=== PATIENT | male | born 1980 | race Caucasian/White ===

== ENCOUNTER 2019-08-06 22:58 | Emergency (ER) | payer SELFPAY ==
[~2019-08-06] VITALS: Ht 172.7 cm; Wt 72.6 kg
[2019-08-06 23:10] VITALS: BP 129/93
--- NOTE | 2019-08-06 23:12 | NUR ---
ED Nurse Note: Patient walked in from home d/t abdominal pain, n/v, denies diarrhea. Patient states he is a [place] citizen on international trip. Patient aao x 4 and ambulatory. 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 ERMD at bedside. No acute distress noted during assessment.
--- NOTE | 2019-08-06 23:12 | Emergency Room Report ---
History of Present Illness General Chief Complaint: Vomiting Source: Patient Present Illness HPI Patient presents with complaints of increased epigastric discomfort nausea vomiting Symptoms started around 5:00 this evening patient reports that throughout the day he did not feel 100% right However the vomiting started around 5:00 patient reports that he is traveling right now And he is staying with a roommate otherwise denies any obvious sick contacts Denies any chest pain or shortness of breath denies any fevers Denies any rash does not recall eating anything unusual Allergies: Coded Allergies: No Known Allergies (Unverified , 08/06/19) Patient History Past Medical History: see triage record Reviewed Nursing Documentation: PMH: Agreed; PSxH: Agreed Nursing Documentation-PMH Past Medical History: No Stated History Review of Systems All Other Systems: negative except mentioned in HPI Physical Exam Vital Signs Date Time Temp Pulse Resp B/P (MAP) Pulse Ox O2 Delivery O2 Flow Rate FiO2 08/06/19 23:00 98.4 63 18 131/65 (87) 98 Room Air Sp02 EP Interpretation: reviewed, normal General Appearance: mild distress - Actively nauseated Head: normocephalic, atraumatic Eyes: bilateral eye PERRL, bilateral eye EOMI ENT: hearing grossly normal, EOM grossly intact Neck: supple Respiratory: lungs clear, no respiratory distress, no retraction Cardiovascular #1: regular rate, rhythm Gastrointestinal: non tender, soft Musculoskeletal: normal inspection Neurologic: alert, oriented x3 Skin: no rash Lymphatic: no adenopathy Medical Decision Making Diagnostic Impression: Primary Impression: Vomiting Additional Impression: Abdominal pain ER Course With the history exam and presentation, multiple differentials considered, including but not limited to appendicitis, gastritis, cholecystitis, diverticulitis Patient initially initiated on IV hydration and brought blood work Patient improved however still had some epigastric and mid abdominal pain therefore CT imaging was obtained Does not show any obvious acute process on repeat evaluation patient has improved lower abdomen remains soft my suspicion for appendicitis is low Patient is discharged for close outpatient follow-up Labs Test 08/06/19 23:17 White Blood Count 13.1 K/UL (4.8-10.8) Red Blood Count 5.41 M/UL (4.70-6.10) Hemoglobin 16.4 G/DL (14.2-18.0) Hematocrit 44.9 % (42.0-52.0) Mean Corpuscular Volume 83 FL (80-99) Mean Corpuscular Hemoglobin 30.3 PG (27.0-31.0) Mean Corpuscular Hemoglobin Concent 36.5 G/DL (32.0-36.0) Red Cell Distribution Width 9.6 % (11.6-14.8) Platelet Count 260 K/UL (150-450) Mean Platelet Volume 7.3 FL (6.5-10.1) Neutrophils (%) (Auto) % (45.0-75.0) Lymphocytes (%) (Auto) % (20.0-45.0) Monocytes (%) (Auto) % (1.0-10.0) Eosinophils (%) (Auto) % (0.0-3.0) Basophils (%) (Auto) % (0.0-2.0) Sodium Level 139 MMOL/L (136-145) Potassium Level 3.2 MMOL/L (3.5-5.1) Chloride Level 102 MMOL/L (98-107) Carbon Dioxide Level 24 MMOL/L (21-32) Anion Gap 13 mmol/L (5-15) Blood Urea Nitrogen 15 mg/dL (7-18) Creatinine 1.0 MG/DL (0.55-1.30) Estimat Glomerular Filtration Rate > 60 mL/min (>60) Glucose Level 153 MG/DL (74-106) Calcium Level 9.8 MG/DL (8.5-10.1) Total Bilirubin 1.0 MG/DL (0.2-1.0) Aspartate Amino Transf (AST/SGOT) 15 U/L (15-37) Alanine Aminotransferase (ALT/SGPT) 32 U/L (12-78) Alkaline Phosphatase 81 U/L (46-116) Total Protein 8.0 G/DL (6.4-8.2) Albumin 4.6 G/DL (3.4-5.0) Globulin 3.4 g/dL Albumin/Globulin Ratio 1.4 (1.0-2.7) Lipase 145 U/L (73-393) Rhythm Strip Diag. Results EP Interpretation: yes Rate: 88 Rhythm: NSR, no PVC's, no ectopy CT/MRI/US Diagnostic Results CT/MRI/US Diagnostic Results : Impression CT abdomen pelvisImpression: Prominent left upper quadrant small bowel loops, may reflect enteritis changes or focal ileus. No acute process otherwise Last Vital Signs Date Time Temp Pulse Resp B/P (MAP) Pulse Ox O2 Delivery O2 Flow Rate FiO2 08/06/19 23:00 98.4 63 18 131/65 (87) 98 Room Air Status: improved Disposition: HOME, SELF-CARE Condition: Improved Scripts Dicyclomine Hcl* (DICYCLOMINE HCL*) 10 Mg Capsule 10 MG ORAL TID, #12 CAP Prov: Justice Cuadra DO 08/07/19 Ondansetron* (ZOFRAN*) 4 Mg Tablet 4 MG ORAL Q6H PRN for Nausea & Vomiting, #12 TAB Prov: Justice Cuadra DO 08/07/19 Additional Instructions: Patient is provided with the discharge instructions notified to follow up with primary doctor in the next 2-3 days otherwise return to the er with any worsening symptoms. Please note that this report is being documented using [employer] technology. This can lead to erroneous entry secondary to incorrect interpretation by the dictating instrument. Justice Cuadra DO Aug 06, 2019 23:12
[2019-08-06] MEDS ORDERED: Metoclopramide 10mg/2ml Inj IVP ONE (23:15)
[2019-08-06] MEDS ORDERED: DiphenhydrAMINE 50mg/ml Inj IVP ONE (23:15)
--- NOTE | 2019-08-06 23:15 | NUR ---
ED Nurse Note: Patient reminded to provide urine sample x 1, per patient cannot provide sample at this time d/t being dehydrated.
--- NOTE | 2019-08-06 23:20 | NUR ---
ED Nurse Note: Friend at bedside.
[2019-08-06 23:40] LABS: HEMATOCRIT 44.9 % (42.0-52.0); HEMOGLOBIN 16.4 G/DL (14.2-18.0); MEAN CORPUSCULAR VOLUME 83 FL (80-99); PLATELET COUNT 260 K/UL (150-450); RED BLOOD COUNT 5.41 M/UL (4.70-6.10); RED CELL DISTRIBUTION WIDTH 9.6 % (11.6-14.8); WHITE BLOOD COUNT 13.1 K/UL (4.8-10.8)
[2019-08-06 23:46] LABS: ANION GAP 13 mmol/L (5-15); BLOOD UREA NITROGEN 15 mg/dL (7-18); CALCIUM 9.8 MG/DL (8.5-10.1); CARBON DIOXIDE 24 MMOL/L (21-32); CHLORIDE 102 MMOL/L (98-107); POTASSIUM 3.2 MMOL/L (3.5-5.1); SODIUM 139 MMOL/L (136-145)
--- NOTE | 2019-08-06 23:47 | NUR ---
ED Nurse Note: Patient reminded to provide urine sample, patient stated not being able to provide sample but will attempt at this time.
--- NOTE | 2019-08-06 23:49 | NUR ---
[phone] Wilber (patient's friend)
--- NOTE | 2019-08-06 23:49 | NUR ---
ED Nurse Note: Patient's friend (Wilber) left number for contact info and stated he will return in 2-3 hours.
[2019-08-06 23:56] LABS: ALANINE AMINOTRANSFERASE 32 U/L (12-78); ALBUMIN 4.6 G/DL (3.4-5.0); ALBUMIN/GLOBULIN RATIO 1.4 (1.0-2.7); ALKALINE PHOSPHATASE 81 U/L (46-116); ASPARTATE AMINO TRANSFERASE 15 U/L (15-37)
[2019-08-07] MEDS ORDERED: Omnipaque-300 100ml vial INJ PRN (00:15)
[2019-08-07] MEDS ORDERED: Morphine Sulfate 4mg/ml Inj (IV USE ONLY) IVP ONE ×2 (00:30→03:00)
--- NOTE | 2019-08-07 00:30 | NUR ---
ED Nurse Note: Pt taken to CT
--- NOTE | 2019-08-07 00:43 | NUR ---
ED Nurse Note: Pt returned from CT in stable condition.
[2019-08-07 01:00] VITALS: BP 140/61
--- NOTE | 2019-08-07 01:32 | Diagnostic Imaging Report ---
Clinical Indication: Abdominal pain for one day Technique: No oral contrast utilized, per emergency room physician request IV administration nonionic contrast. Venous phase spiral acquisition obtained through the abdomen and pelvis. Multiplanar reconstructions were generated. Total dose length product 1363 mGycm. CTDIvol(s) 24 mGy. Dose reduction achieved using automated exposure control Comparison: none Findings: The appendix is normal. There is no evidence of colonic diverticulosis or diverticulitis. Proximal small bowel loops in the left upper quadrant are somewhat distended without definite transition point. No free or loculated intraperitoneal gas or fluid is evident. The distal esophagus, stomach, duodenum are unremarkable. The liver, gallbladder, bile ducts, pancreas, spleen, adrenals, kidneys are all unremarkable. No renal or ureteral calculi demonstrated. No pelvic mass or adenopathy. The bladder is mildly distended. The included lung bases are clear. The bones are unremarkable Impression: Prominent left upper quadrant small bowel loops, may reflect enteritis changes or focal ileus. No acute process otherwise This agrees with the preliminary interpretation provided overnight by [facility] teleradiology service. The CT scanner at [facility] is accredited by the [employer] and the scans are performed using protocols designed to limit radiation exposure to as low as reasonably achievable to attain images of sufficient resolution adequate for diagnostic evaluation.
--- NOTE | 2019-08-07 02:57 | NUR ---
ED Nurse Note: ERMD at bedside.
[2019-08-07 03:00] VITALS: BP 121/66
[2019-08-07] MEDS ORDERED: DICYCLOMINE HCL10 MG ORAL (03:49)
[2019-08-07] MEDS ORDERED: ZOFRAN4 M3 ORAL (03:49)
--- NOTE | 2019-08-07 03:49 | NUR ---
ED Nurse Note: Pt still unable to provide urine sample.
[2019-08-07 03:54] VITALS: BP 138/66
--- NOTE | 2019-08-07 03:54 | NUR ---
ED Nurse Note: Patient cleared for discharge by ERMD. Discharge instructions and prescriptions given to patient, verbalized understanding. Medical devices and ID band removed. IV removed intact with no complications. Patient aao x 4 and ambulatory upon discharge. Patient stable upon discharge.
== END 2019-08-07 03:54 | disposition home or self-care (01) ==
LOC: EMR 23:15
DX: R11.10 Vomiting, unspecified (principal); R10.9 Unspecified abdominal pain
CPT/HCPCS: 36415; 74177; 80053; 83690; 85025; 96361; 96374; 96375; 96376; 99284; J1200; J2270; J2405; J2765; J7030; J7040; Q9967